=== PATIENT | female | born 1985 | race American Indian/Alaskan Native ===

== ENCOUNTER 2017-07-01 20:28 | Emergency (ER) | payer MEDICAID ==
--- NOTE | 2017-07-01 21:53 | Emergency Department Report ---
ED Rash HPI - HPI Chief Complaint: Skin Rash Stated Complaint: RASH,BURNING ,PAINFUL Time Seen by Provider: 07/01/17 21:25 Duration: 2 Days Location: Other (left chest. Rash with burning and itching.) Suspected Cause: Unknown Rash Symptoms: Yes Itching (burning pain), Yes Blistering, No Facial Swelling, No Tongue/Oral Swelling, No Breathing Difficulties, No Choking Sensation, No Wheezing/Dyspnea, No Peeling, No Fever, No Lightheaded, No Malaise, No Myalgias Severity: severe (7/10) Other History: Patient here reports that she had a rash that started 2 days ago that is burning and itching to her left chest area. Denies any fever or chills. Denies any new soaps, medication or anything new in her environment that she ingested or placed topically on her body. Immunizations up-to-date. No yerm-jla-vavxaic medication taken. She said rash emerson more than it itches. Nothing makes it better and nothing makes it worse. Denies any cough or shortness of breath. Rash area 7 out of 10 burning pain. ED Review of Systems ROS: Stated complaint: RASH,BURNING ,PAINFUL Other details as noted in HPI Comment: All other systems reviewed and negative Constitutional: no symptoms reported Respiratory: no symptoms reported Cardiovascular: denies: chest pain, palpitations, dyspnea on exertion, edema, syncope, paroxysmal nocturnal dyspnea Gastrointestinal: denies: nausea, vomiting Genitourinary: denies: frequency, hematuria, discharge Musculoskeletal: denies: back pain, joint swelling, arthralgia Skin: rash, lesions, pruritus Neurological: denies: headache, weakness, numbness, paresthesias, confusion, abnormal gait, vertigo ED Past Medical Hx - Past Medical History Previous Medical History?: No - Surgical History Past Surgical History?: Yes Additional Surgical History: c section x3. - Family History Family history: hypertension - Social History Smoking Status: Never Smoker Substance Use Type: None - Medications Home Medications: Home Medications Medication Instructions Recorded Confirmed Last Taken Type Acetaminophen/Codeine [Tylenol 1 tab PO Q6H PRN #12 tab 07/01/17 Unknown Rx /Codeine # 3 tab] Valacyclovir HCl [Valtrex] 1,000 mg PO TID 10 Days #30 tablet 07/01/17 Unknown Rx Rash Exam - Exam General: Vital signs noted. No distress. Alert and acting appropriately. This is a 32-year-old female well-nourished well-developed in no acute distress HEENT: No Periorbital Edema, No Conjuctival Injection, No Chemosis, No Perioral Edema, No Tongue Edema, No Uvular Edema, No Compromised Airway, No Drooling Lungs: Yes Good Air Exchange, No Wheezes, No Ronchi, No Stridor, No Cough, No Labored Respirations, No Retractions, No Use of Accessory Muscles, No Other Abnormal Lung Sounds Heart: Yes Regular (S1, S2. Regular rate and rhythm.), No Murmur Skin: Yes Tenderness, Yes Erythema, Yes Other (noted vesicular areas to left posterior thorax from mid axillary line extending posteriorly. Group vesicles. Tender to palpate. Erythema), No Urticarial Rash, No Maculopapular Rash, No Morbilliform rash, No Bulla(e), No Excoriations, No Weeping, No Edema, No Encrustations Other: Positive: Abdomen Normal, Neurologic Normal, Musculoskeletal Normal ED Course Vital Signs 07/01/17 21:06 Temperature 98.5 F Pulse Rate 64 Respiratory 20 Rate Blood Pressure 108/64 Blood Pressure 108/64 [Left] O2 Sat by Pulse 99 Oximetry - Reevaluation(s) Reevaluation #1: 07/01/17 23:21 Patient received topical 2% lidocaine ointment to site which helped pain. ED Medical Decision Making - Medical Decision Making ED course: Patient here complaining of burning a calm her itching rash over today. Physical findings for shingles. I discussed with patient diagnosis and treatment plan and she voiced understanding. Patient given lidocaine 2% ointment to affected area. Patient discharged home in stable condition with prescription for Tylenol No. 3 and Valtrex and to follow up with her primary care physician in 2-3 days. She does not have a primary care physician so I will refer her to [facility] and Dr. Shelby with dermatology. Critical care attestation.: If time is entered above; I have spent that time in minutes in the direct care of this critically ill patient, excluding procedure time. ED Disposition Clinical Impression: Shingles rash Qualifiers: Herpes zoster complications: without complications Qualified Code(s): B02.9 - Zoster without complications Disposition: TO HOME OR SELFCARE Is pt being admited?: No Does the pt Need Aspirin: No Condition: Stable Instructions: Herpes Zoster (ED) Additional Instructions: Please keep affected area clean and dry You are considered contagious until rash are dried and no red in appearance. Take Valtrex as prescribed rash is contagious so please ensure that you stay away from individuals, children and elderly. Please wipe environment down with disinfectant Follow-up at [facility] for primary care Please do not drive or operate heavy machinery while taking Tylenol No. 3 as this medication causes drowsiness Prescriptions: Acetaminophen/Codeine [Tylenol /Codeine # 3 tab] 1 tab PO Q6H PRN #12 tab PRN Reason: Pain Valacyclovir HCl [Valtrex] 1,000 mg PO TID 10 Days #30 tablet Referrals: [facility] [Outside] - 2-3 Days JARVIS SHELBY MD [Staff Physician] - 2-3 Days Forms: Work/School Release Form(ED), Accompanied Note
[2017-07-01] MEDS ORDERED: XYLOCAINE TOPICAL 2% 5ML TP ONE (21:54)
[2017-07-01] MEDS ORDERED: XYLOCAINE TOPICAL 2% 5ML ONE (21:54)
[2017-07-02 00:22] VITALS: BP 110/61
== END 2017-07-02 00:22 | disposition home or self-care (01) ==
LOC: ED 20:28
DX: B02.9 Zoster without complications (principal)
CPT/HCPCS: 99282

== ENCOUNTER 2017-08-23 14:09 | Emergency (ER) | payer MEDICAID ==
[2017-08-23] MEDS ORDERED: NACL 0.9% 1000 ML 1,000 ML IV ONE (20:08)
[2017-08-23] MEDS ORDERED: ZOFRAN IV ONE (20:19)
[2017-08-23] MEDS ORDERED: MORPHINE IV ONE (20:19)
[2017-08-23 20:47] LABS: Basophils # (Auto) 0.1 K/mm3 (0.0-0.1); Basophils % (Auto) 1.1 % (0.0-1.8); Eosinophils # (Auto) 0.4 K/mm3 (0.0-0.4); Eosinophils % (Auto) 7.4 % (0.0-4.3); Hematocrit 40.6 % (30.3-42.9); Lymphocytes # (Auto) 1.7 K/mm3 (1.2-5.4); Lymphocytes % (Auto) 33.6 % (13.4-35.0); Mean Corpuscular HGB Conc 32 % (30-34); Mean Corpuscular Volume 79 fl (79-97); Monocytes # (Auto) 0.4 K/mm3 (0.0-0.8); Monocytes % (Auto) 8.2 % (0.0-7.3); Platelet Count 201 K/mm3 (140-440); Red Blood Count 5.15 M/mm3 (3.65-5.03); Red Cell Distribution Width 14.2 % (13.2-15.2)
[2017-08-23 20:48] LABS: Mean Corpuscular Hemoglobin 25 pg (28-32)
[2017-08-23 20:53] LABS: Alanine Aminotransferase 19 units/L (7-56); Albumin 4.8 g/dL (3.9-5); BUN/Creatinine Ratio 17; Bilirubin,Direct < 0.2 mg/dL (0-0.2); Blood Urea Nitrogen 12 mg/dL (7-17); Calcium 9.1 mg/dL (8.4-10.2); Hemolysis Index 3; Lipase 40 units/L (13-60)
--- NOTE | 2017-08-23 22:24 | Emergency Department Report ---
ED Abdominal Pain HPI - General Chief Complaint: Abdominal Pain Stated Complaint: ABD PAIN Time Seen by Provider: 08/23/17 19:34 Source: patient Mode of arrival: Ambulatory Limitations: No Limitations - History of Present Illness Initial Comments: Ms. 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 9 years ago she was diagnosed with a right-sided DVT during . 1-2 years ago she was diagnosed with a "clot" in her stomach requiring Xarelto anticoagulation. She stopped taking Xarelto for 1-2 months. She started taking Xarelto again after seeing her business analytics manager 3 weeks ago. She has right upper quadrant epigastric pain. She feels that her "clot is back ". Mild pain without vomiting or diarrhea. MD Complaint: abdominal pain -: Gradual Location: RUQ, epigastric Radiation: none Severity: mild Severity scale (0 -10): 0 Quality: cramping, dull Consistency: constant Improves With: nothing Worsens With: nothing - Related Data Previous Rx's Medication Instructions Recorded Last Taken Type Fluconazole [Diflucan TAB] 150 mg PO ONCE #1 tablet 04/02/15 Unknown Rx Hydrocortisone 1% [Hydrocortisone 1 applicatio TP TID #1 tube 04/02/15 Unknown Rx 1% CREAM] Ibuprofen [Motrin] 800 mg PO Q8HR PRN #30 tablet 04/02/15 Unknown Rx hydrOXYzine PAMOATE [Vistaril] 25 mg PO Q6HR PRN #14 capsule 04/02/15 Unknown Rx traMADol [Ultram] 50 mg PO Q6HR PRN #14 tablet 04/02/15 Unknown Rx Acetaminophen/Codeine [Tylenol 1 tab PO Q6H PRN #12 tab 07/01/17 Unknown Rx /Codeine # 3 tab] Valacyclovir HCl [Valtrex] 1,000 mg PO TID 10 Days #30 tablet 07/01/17 Unknown Rx Famotidine 20 mg PO BID 30 Days #60 tablet 08/24/17 Unknown Rx HYDROcodone/APAP 5-325 [Custer 1 each PO Q4HR PRN #10 tablet 08/24/17 Unknown Rx 5/325] Allergies Allergy/AdvReac Type Severity Reaction Status Date / Time Latex, Natural Rubber Allergy Rash Verified 08/23/17 14:15 ED Review of Systems ROS: Stated complaint: ABD PAIN Other details as noted in HPI Comment: All other systems reviewed and negative Constitutional: denies: fever, malaise ED Past Medical Hx - Past Medical History Additional medical history: blood clot in large intestine. - Surgical History Additional Surgical History: c section x3. - Social History Smoking Status: Never Smoker Substance Use Type: None - Medications Home Medications: Home Medications Medication Instructions Recorded Confirmed Last Taken Type Fluconazole [Diflucan TAB] 150 mg PO ONCE #1 tablet 04/02/15 Unknown Rx Hydrocortisone 1% [Hydrocortisone 1 applicatio TP TID #1 tube 04/02/15 Unknown Rx 1% CREAM] Ibuprofen [Motrin] 800 mg PO Q8HR PRN #30 tablet 04/02/15 Unknown Rx hydrOXYzine PAMOATE [Vistaril] 25 mg PO Q6HR PRN #14 capsule 04/02/15 Unknown Rx traMADol [Ultram] 50 mg PO Q6HR PRN #14 tablet 04/02/15 Unknown Rx Acetaminophen/Codeine [Tylenol 1 tab PO Q6H PRN #12 tab 07/01/17 Unknown Rx /Codeine # 3 tab] Valacyclovir HCl [Valtrex] 1,000 mg PO TID 10 Days #30 tablet 07/01/17 Unknown Rx Famotidine 20 mg PO BID 30 Days #60 tablet 08/24/17 Unknown Rx HYDROcodone/APAP 5-325 [Custer 1 each PO Q4HR PRN #10 tablet 08/24/17 Unknown Rx 5/325] ED Physical Exam - General Limitations: No Limitations General appearance: alert, in no apparent distress - Head Head exam: Present: atraumatic, normocephalic - Eye Eye exam: Present: normal appearance - ENT ENT exam: Present: mucous membranes moist - Neck Neck exam: Present: normal inspection - Respiratory Respiratory exam: Present: normal lung sounds bilaterally. Absent: respiratory distress, wheezes, rales, rhonchi - Cardiovascular Cardiovascular Exam: Present: regular rate, normal rhythm. Absent: systolic murmur, diastolic murmur, rubs, gallop - GI/Abdominal GI/Abdominal exam: Present: soft, normal bowel sounds. Absent: distended, guarding, rebound - Extremities Exam Extremities exam: Present: normal inspection - Back Exam Back exam: Present: normal inspection - Neurological Exam Neurological exam: Present: alert, oriented X3 - Psychiatric Psychiatric exam: Present: normal affect, normal mood - Skin Skin exam: Present: warm, dry, intact, normal color. Absent: rash ED Course Vital Signs 08/23/17 08/23/17 14:15 20:08 Temperature 98.4 F 98 F Pulse Rate 63 62 Respiratory 16 16 Rate Blood Pressure 105/72 Blood Pressure 111/80 [Left] O2 Sat by Pulse 100 100 Oximetry ED Medical Decision Making - Lab Data Result diagrams: 08/23/17 20:28 08/23/17 20:28 Laboratory Results - last 24 hr 08/23/17 08/23/17 08/23/17 20:28 20:28 20:28 WBC 5.1 RBC 5.15 H Hgb 13.0 Hct 40.6 MCV 79 MCH 25 L MCHC 32 RDW 14.2 Plt Count 201 Lymph % (Auto) 33.6 Terry % (Auto) 8.2 H Eos % (Auto) 7.4 H Baso % (Auto) 1.1 Lymph # 1.7 Terry # 0.4 Eos # 0.4 Baso # 0.1 Seg Neutrophils % 49.7 Seg Neutrophils # 2.6 Sodium 137 Potassium 4.0 Chloride 99.5 Carbon Dioxide 24 Anion Gap 18 BUN 12 Creatinine 0.7 Estimated GFR > 60 BUN/Creatinine Ratio 17 Glucose 83 Calcium 9.1 Total Bilirubin 0.40 Direct Bilirubin < 0.2 Indirect Bilirubin 0.2 AST 22 ALT 19 Alkaline Phosphatase 69 Total Protein 8.0 Albumin 4.8 Albumin/Globulin Ratio 1.5 Lipase 40 HCG, Qual Negative - Medical Decision Making ms. Vega has hx of "clot" in abdomen on anticoagulation. Normal labs. Normal CT abdomen and pelvis without evidence of bowel obstruction or arterial occlusion. Arteries are widely patent according to CT reported. Differential diagnoses includes IBS versus peptic ulcer disease. I prescribed Pepcid and Custer. Critical care attestation.: If time is entered above; I have spent that time in minutes in the direct care of this critically ill patient, excluding procedure time. ED Disposition Clinical Impression: Abdominal pain Disposition: - TO HOME OR SELFCARE Is pt being admited?: No Does the pt Need Aspirin: No Condition: Stable Instructions: Abdominal Pain (ED) Prescriptions: Famotidine 20 mg PO BID 30 Days #60 tablet HYDROcodone/APAP 5-325 [Custer 5/325] 1 each PO Q4HR PRN #10 tablet PRN Reason: Pain Referrals: [facility] [Outside] - 3-5 Days Forms: Methotrexate D/C Instructions Time of Disposition: 01:05
[2017-08-23] MEDS ORDERED: NACL ONE (23:50)
[2017-08-24] MEDS ORDERED: MORPHINE ONE (00:24)
[2017-08-24] MEDS ORDERED: MORPHINE IV ONE (00:24)
--- NOTE | 2017-08-24 00:43 | Cat Scan Report ---
FINAL REPORT EXAM: CT ABDOMEN PELVIS W CON HISTORY: Abdominal Pain hx of mesenteric artery occlusion TECHNIQUE: Routine axial imaging was obtained of the abdomen and pelvis following the intravenous injection of 100 cc of Omnipaque 350. Oral contrast was also administered. Delayed imaging was obtained through the kidneys ureters and bladder. Sagittal and coronal reconstructions were reviewed. FINDINGS: The lung bases are clear. Pleural fluid is not seen. The liver, gallbladder, biliary tree, pancreas, spleen, and adrenal glands appear normal. The kidneys enhance normally. The vascular structures enhance normally. The celiac and superior mesenteric arteries are widely patent. The bowel loops are normal in caliber and course. There is no evidence of adenopathy or free fluid. The appendix is not enlarged. There is a small umbilical hernia containing omental fat. In the pelvis the uterus and bladder appear normal. There is a right ovarian cyst measuring 18.5 mm in diameter. Free fluid is not seen. The skeletal structures do not show any acute changes. IMPRESSION: No acute process in the abdomen and pelvis. Small umbilical hernia containing omental fat. Small right ovarian cyst.
[2017-08-24 01:27] VITALS: BP 106/78
== END 2017-08-24 01:28 | disposition home or self-care (01) ==
LOC: ED 14:09
DX: R10.13 Epigastric pain (principal); R10.11 Right upper quadrant pain; Z91.040 Latex allergy status
CPT/HCPCS: 36415; 74177; 80048; 80074; 83690; 84703; 85025; 96361; 96374; 96375; 96376; 99284; J2270; J2405; J7030; Q9967

== ENCOUNTER 2017-12-12 14:56 | Emergency (ER) | payer MEDICAID ==
[2017-12-12 15:20] VITALS: BP 113/74
[2017-12-12] MEDS ORDERED: MOTRIN PO ONE (18:12)
[2017-12-12] MEDS ORDERED: NORCO 5/325 PO ONE (18:23)
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
== END 2017-12-12 19:05 | disposition home or self-care (01) ==
LOC: ED 14:56
DX: S62.667A Nondisplaced fracture of distal phalanx of left little finger, initial encounter for closed fracture (principal); F12.10 Cannabis abuse, uncomplicated; Z91.040 Latex allergy status; Z79.899 Other long term (current) drug therapy; X50.1XXA Overexertion from prolonged static or awkward postures, initial encounter; Y93.89 Activity, other specified; Y99.8 Other external cause status; Y92.89 Other specified places as the place of occurrence of the external cause

== ENCOUNTER 2018-08-22 16:12 | Emergency (ER) | payer MEDICAID, OTHER ==
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
[2018-08-22 16:30] VITALS: BP 114/77
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
[2018-08-22] MEDS ORDERED: IBUPROFEN PO ONE (20:02)
== END 2018-08-22 20:16 | disposition home or self-care (01) ==
LOC: ED 16:12
DX: S39.012A Strain of muscle, fascia and tendon of lower back, initial encounter (principal); S29.012A Strain of muscle and tendon of back wall of thorax, initial encounter; Z79.899 Other long term (current) drug therapy; Z91.040 Latex allergy status; Z91.09 Other allergy status, other than to drugs and biological substances; V48.0XXA Car driver injured in noncollision transport accident in nontraffic accident, initial encounter; Y93.89 Activity, other specified; Y99.8 Other external cause status; Y92.410 Unspecified street and highway as the place of occurrence of the external cause
CPT/HCPCS: 72070; 72100; 99283